=== PATIENT | male | born 1975 | race Caucasian/White ===

== ENCOUNTER 2018-03-06 03:09 | Emergency (ER) | payer SELFPAY ==
--- NOTE | 2018-03-06 03:28 | DR.GENAD ---
HPI - HPI Comment HPI Comment: PATIENT WOKE UP AND WAS SOB.HAD TO SIT UP. BECME DIAPHORETIC. WAS DIZZY AND BREATHING FAST.FINGES STARTED TINGLING. GETTING BETTER BUT SYMPTOMS STILL PRESENT. - Complaint/Symptoms Chief Complaint Doctors Comments: CHEST PAIN, DIZZINESS, SOB THAT STARTED BEFORE COMING. - Nurses notes reviewed Nurses Notes Review: Yes - Source History Provided: Patient - Mode of Arrival Mode of Arrival: Ambulatory - Timing Came on: Suddenly - Duration Duration: Constant Duration: Hours - Severity Severity: Moderate ROS - Review of Systems Constitutional: Weakness, Fatigue. negative: Chills, Fever Eyes: No Symptoms Reported. negative: Eye Pain, Blurred Vision, Discharge, Photophobia ENTM: negative: Ear Pain, Nose Discharge, Nose Congestion, Throat Pain Respiratoy: Non-Productive Cough, Short of Breath. negative: Productive Cough, Wheezing, Hemoptysis Cardiovascular: Chest Pain. negative: Edema, Syncope Gastrointestinal/Abdominal: Nausea. negative: Abdominal Pain, Vomiting Genitourinary: No Symptoms Reported. negative: Dysuria, Frequency, Hematuria Neurological: Headache, Tingling (HANDS), Weakness, Dizziness Musculoskeletal: Back Pain, Gout, Joint Pain, Joint Swelling Integumentary: No Symptoms Reported Hematologic/Lymphatic: No Symptoms Reported Endocrine: No Symptoms Reported All Other Systems: Reviewed and Negative PE - Vital Signs Vitals: Temperature 97.5 F Pulse Rate 58 Respiratory Rate 16 Blood Pressure 120/73 O2 Sat by Pulse Oximetry 98 - General Limitations: No Limitations General Appearance: Alert - Head Head Exam: Normal Inspection - Eyes Eye exam: Normal Appearance - ENT ENT Exam: Normal External Ear Exam TM/Canal Exam: Bilateral Normal Nose Exam: Normal Nose Exam Mouth Exam: Normal Inspection Throat Exam: Normal Inspection - Neck Neck Exam: Trachea Midline - Chest Chest Inspection: Symmetric Chest Wall Rise - Respiratory Respiratory Exam: Normal Lung Sounds Bilat Respiratory Exam: Bilateral Rhonchi, Lower Rhonchi - Cardiovascular Cardiovascular Exam: Regular Rate, Normal Rhythm, Normal Heart Sounds - Abdominal Exam Abdominal Exam: Normal Bowel Sounds, Soft. negative: Tenderness - Extremities Extremities Exam: Normal Inspection - Back Back Exam: Normal Inspection - Neurologic Neurological Exam: Alert, Oriented X3 - Psychiatric Psychiatric Exam: Normal Affect, Normal Mood - Skin Skin Exam: Normal Color MDM - Additional Information Additional Information Obtained From: Family - Differential Diagnosis Differential Diagnosis: CHEST PAIN, DIZZINESS, SOB, PNEUMOPNIA, PE, CO Course - Treatment Treatment: SEE ORDERS. - Education/Counseling Education/Counseling: Patient, Family, Education Educated On: Diagnosis, Needs for Follow Up ROR - Labs Reviewed Laboratory Results Reviewed?: Yes Result Diagrams: 03/06/18 03:40 03/06/18 03:40 Laboratory: WBC 10.4 X10^3/uL (3.6-10.0) H 03/06/18 03:40 RBC 5.18 X10^6/uL (4.7-6.0) 03/06/18 03:40 Hgb 15.4 g/dL (13.5-18.0) 03/06/18 03:40 Hct 44.0 % (42.0-54.0) 03/06/18 03:40 MCV 84.9 fL (80.0-100.0) 03/06/18 03:40 MCH 29.8 pg (27.0-34.0) 03/06/18 03:40 MCHC 35.1 g/dL (33.0-35.0) H 03/06/18 03:40 RDW 12.9 % (11.6-16.5) 03/06/18 03:40 Plt Count 237 X10^3/uL (150.0-450.0) 03/06/18 03:40 MPV 7.4 fL (7.4-11.0) 03/06/18 03:40 Neut % (Auto) 37.9 % (42.0-75.0) L 03/06/18 03:40 Lymph % (Auto) 53.2 % (21.0-51.0) H 03/06/18 03:40 [place] % (Auto) 6.7 % (0.0-13.0) 03/06/18 03:40 Eos % (Auto) 1.7 % (0.9-2.9) 03/06/18 03:40 Baso % (Auto) 0.5 % (0.2-1.0) 03/06/18 03:40 Neut # (Auto) 3.9 x10^3/uL (2.2-4.8) 03/06/18 03:40 Lymph # (Auto) 5.5 X10^3/uL (1.3-2.9) H 03/06/18 03:40 [place] # (Auto) 0.7 x10^3/uL (0.3-0.8) 03/06/18 03:40 Eos # (Auto) 0.2 x10^3/uL (0.0-0.2) 03/06/18 03:40 Baso # (Auto) 0.1 X10^3/uL (0.0-0.1) 03/06/18 03:40 Absolute Nucleated RBC 0.1 /100WBC 03/06/18 03:40 D-Dimer < 100 ng/mL (0-400) 03/06/18 03:40 Sodium 139 mmol/L (136-145) 03/06/18 03:40 Corrected Sodium 140 mmol/L (136-145) 03/06/18 03:40 Potassium 3.1 mmol/L (3.5-5.1) L 03/06/18 03:40 Chloride 102 mmol/L (98-107) 03/06/18 03:40 Carbon Dioxide 27.2 mmol/L (21-32) 03/06/18 03:40 BUN 20 mg/dL (7-18) H 03/06/18 03:40 Creatinine 1.38 mg/dL (0.70-1.30) H 03/06/18 03:40 Est GFR (MDRD) Af Amer > 60 (>60) 03/06/18 03:40 Est GFR (MDRD) Non-Af > 60 (>60) 03/06/18 03:40 Glucose 136 mg/dL (65-99) H 03/06/18 03:40 Calcium 8.2 mg/dL (8.5-10.1) L 03/06/18 03:40 Corrected Calcium TNP 03/06/18 03:40 Total Bilirubin 0.40 mg/dL (0.2-1.0) 03/06/18 03:40 AST 17 Units/L (15-37) 03/06/18 03:40 ALT 38 Units/L (12-78) 03/06/18 03:40 Alkaline Phosphatase 103 Units/L (46-116) 03/06/18 03:40 Creatine Kinase 109 Units/L (39-308) 03/06/18 03:40 CK-MB (CK-2) < 1.0 ng/mL (0-4.0) 03/06/18 03:40 CK/CKMB % Calc 0.9 % (<4) 03/06/18 03:40 Troponin I < 0.02 ng/mL (0-1.5) 03/06/18 03:40 B-Natriuretic Peptide 6.5 pg/mL (0-79) 03/06/18 03:40 Total Protein 7.3 g/dL (6.4-8.2) 03/06/18 03:40 Albumin 3.7 g/dL (3.4-5.0) 03/06/18 03:40 Globulin 3.6 g/dL (2.5-4.5) 03/06/18 03:40 Albumin/Globulin Ratio 1.0 Ratio (1.1-2.1) L 03/06/18 03:40 Amylase 56 Units/L (25-115) 03/06/18 03:40 Lipase 48 Units/L (73-393) L 03/06/18 03:40 - XRAY XRAY Interpreted by: Radiologist XRAY Findings: SEE REPORT. - EKG Rhythm: SB (EKG NOTED.) - Diagnosis Discharge Problem: SOB (shortness of breath) Chest pain Qualifiers: Chest pain type: unspecified Qualified Code(s): R07.9 - Chest pain, unspecified - Discharge Plan Condition: Stable - Follow ups/Referrals Follow ups/Referrals: VICTOR MANUEL MARX [Primary Care Provider] - 1 day - Instructions Instructions: Shortness of Breath, Adult, [id number], Chest Pain Observation Additional Instructions: RETURN TO ED IF WORSE.
[2018-03-06 03:36] VITALS: BP 120/73; BMI 37.8
[2018-03-06] MEDS ORDERED: NS 1000 ML 1,000 ML ONE (03:45)
[2018-03-06 03:54] LABS: BASOPHILS # (AUTO) 0.1 X10^3/uL (0.0-0.1); BASOPHILS % (AUTO) 0.5 % (0.2-1.0); EOSINOPHILS # (AUTO) 0.2 x10^3/uL (0.0-0.2); EOSINOPHILS % (AUTO) 1.7 % (0.9-2.9); HEMOGLOBIN 15.4 g/dL (13.5-18.0); LYMPHOCYTES # (AUTO) 5.5 X10^3/uL (1.3-2.9); LYMPHOCYTES % (AUTO) 53.2 % (21.0-51.0); MEAN CORPUSCULAR HEMOGLOBIN 29.8 pg (27.0-34.0); MEAN CORPUSCULAR HGB CONC 35.1 g/dL (33.0-35.0); MEAN CORPUSCULAR VOLUME 84.9 fL (80.0-100.0); MEAN PLATELET VOLUME 7.4 fL (7.4-11.0); MONOCYTES # (AUTO) 0.7 x10^3/uL (0.3-0.8); MONOCYTES % (AUTO) 6.7 % (0.0-13.0); NEUTROPHILS # (AUTO) 3.9 x10^3/uL (2.2-4.8); NEUTROPHILS % (AUTO) 37.9 % (42.0-75.0); PLATELET COUNT 237 X10^3/uL (150.0-450.0); RED BLOOD COUNT 5.18 X10^6/uL (4.7-6.0); RED CELL DISTRIBUTION WIDTH 12.9 % (11.6-16.5); WHITE BLOOD COUNT 10.4 X10^3/uL (3.6-10.0)
[2018-03-06] MEDS ORDERED: NS 1000 ML 1,000 ML IV SCH (04:00)
[2018-03-06 04:08] LABS: BLOOD UREA NITROGEN 20 mg/dL (7-18); CALCIUM 8.2 mg/dL (8.5-10.1); CARBON DIOXIDE 27.2 mmol/L (21-32); CHLORIDE 102 mmol/L (98-107); COR NA(FOR HYPERGLY) 140 mmol/L (136-145); CREATININE 1.38 mg/dL (0.70-1.30); SODIUM 139 mmol/L (136-145); TROPONIN I < 0.02 ng/mL (0-1.5); eGFR BLACK RACES > 60 (>60); eGFR NON BLACK RACES > 60 (>60)
[2018-03-06 04:13] LABS: ALANINE AMINOTRANSFERASE 38 Units/L (12-78); ALBUMIN 3.7 g/dL (3.4-5.0); ALKALINE PHOSPHATASE 103 Units/L (46-116); ASPARTATE AMINO TRANSFERASE 17 Units/L (15-37); CKMB % 0.9 % (<4); CREATINE KINASE 109 Units/L (39-308); CREATINE KINASE MB < 1.0 ng/mL (0-4.0); TOTAL PROTEIN 7.3 g/dL (6.4-8.2)
[2018-03-06] MEDS ORDERED: K-LYTE EFFERVESCENT PO ONE (04:20)
[2018-03-06] MEDS ORDERED: K-LYTE EFFERVESCENT ONE (04:23)
[2018-03-06 05:15] LABS: AMYLASE 56 Units/L (25-115); LIPASE 48 Units/L (73-393)
--- NOTE | 2018-03-06 05:19 | RAD ---
AP Chest Indication: Chest pain Comparison: None available Findings: The trachea is midline. The cardiac silhouette is unremarkable. The lungs are clear without focal i nfiltrate or effusion. The bony thorax is unremarkable. IMPRESSION: 1. No acute cardiopulmonary abnormality. Reported By:
== END 2018-03-06 05:46 | disposition home or self-care (01) ==
LOC: ER 03:09
DX: R07.89 Other chest pain (principal); R06.02 Shortness of breath
CPT/HCPCS: 36415; 71045; 80053; 82150; 82550; 82553; 83690; 83880; 84484; 85025; 85378; 93005; 93010; 96365; 96367; 99283; 99285; A4222